=== PATIENT | female | born 1980 | race Caucasian/White ===

== ENCOUNTER 2018-07-17 11:07 | Emergency (ER) | payer OTHER ==
[2018-07-17 11:22] VITALS: BP 116/65; PULSE 81; TEMP 97.9; BMI 26.5
--- NOTE | 2018-07-17 12:02 | PDOC ---
History of Present Illness - General Chief Complaint: Headache Stated Complaint: HEADACHE Time Seen by Provider: 07/17/18 11:47 History Source: Patient Exam Limitations: No Limitations - History of Present Illness Initial Comments: 07/17/18 11:57 HISTORY OF PRESENT ILLNESS: This is a 38-year-old woman past medical history of hyperlipidemia who presents emergency departments with 1 month of occipital headache radiating across the left side of her head to her left orbit. She reports having intermittent tearing and photophobia. Patient states she's been taking Tylenol and Motrin with minimal relief of symptoms. She is unable to identify any alleviating or aggravating factors. She reports that she does not usually get headaches. No recent travel or sick contacts. PAST MEDICAL HISTORY: HLD SURGICAL HISTORY: Denies ALLERGIES: No known drug allergies REVIEW OF SYSTEMS General/Constitutional: Denies fever or chills. Denies weakness, weight change. HEENT: Denies change in vision. Denies ear pain or discharge. Denies sore throat. Cardiovascular: Denies chest pain or shortness of breath. Respiratory: Denies cough, wheezing, or hemoptysis. Gastrointestinal: Denies nausea, vomiting, diarrhea or constipation. Denies rectal bleeding. Genitourinary: Denies dysuria, frequency, or change in urination. Musculoskeletal: Denies joint or muscle swelling or pain. Denies neck or back pain. Skin and breasts: Denies rash or easy bruising. Neurologic: +headache. Denies vertigo, loss of consciousness, or loss of sensation. Psychiatric: Denies depression or anxiety. Endocrine: Denies increased thirst. Denies abnormal weight change. Hematologic/Lymphatic: Denies anemia, easy bleeding, or history of blood clots. Allergic/Immunologic: Denies hives or skin allergy. Denies latex allergy. PHYSICAL EXAM General Appearance: Well-appearing, appropriately dressed. No apparent distress , no intoxication. HEENT: EOMI, PERRLA, normal ENT inspection, normal voice, TMs normal, pharynx normal. No conjunctival pallor. No photophobia, scleral icterus. Neck: Supple. Trachea midline. No tenderness, rigidity, carotid bruit, stridor , lymphadenopathy, or thyromegaly. Respiratory/Chest: Lungs CTAB. No shortness of breath, chest tenderness, respiratory distress, accessory muscle use. No crackles, rales, rhonchi, stridor , wheezing, dullness Cardiovascular: RRR. S1, S2. No JVD, murmur, bradycardia, tachycardia. Vascular Pulses: Dorsalis-Pedis (R): 2+, Dorsalis-Pedis (L): 2+ Gastrointestinal/Abdominal: Normal bowel sounds. Abdomen soft, non-distended. No tenderness or rebound tenderness. No organomegaly, pulsatile mass, guarding, hernia, hepatomegaly, splenomegaly. Lymphatic: No adenopathy, tenderness. Musculoskeletal/Extremities: Normal inspection. FROM of all extremities, normal capillary refill. Pelvis Stable. No CVA tenderness. No tenderness to extremities, pedal edema, swelling, erythema or deformity. Integumentary: Appropriate color, dry, warm. 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 Fully oriented, alert. Appropriate mood/affect. Motor strength 5/5. No appreciable EOM palsy, facial droop or sensory deficit. Past History - Past Medical History Allergies/Adverse Reactions: Allergies Allergy/AdvReac Type Severity Reaction Status Date / Time No Known Allergies Allergy Verified 07/17/18 11:20 Home Medications: Ambulatory Orders NK [No Known Home Medication] 07/17/18 - Suicide/Smoking/Psychosocial Hx Smoking History: Never smoked Hx Alcohol Use: No Drug/Substance Use Hx: No Substance Use Type: None *Physical Exam - Vital Signs Last Vital Signs Temp Pulse Resp BP Pulse Ox 97.9 F 81 16 116/65 100 07/17/18 11:21 07/17/18 11:21 07/17/18 11:21 07/17/18 11:21 07/17/18 11:21 Medical Decision Making - Medical Decision Making 07/17/18 12:02 A/P: 38-year-old woman with headache for one month Neurologic exam is within normal limits Urine testing CAT scan Toradol Reassess 07/17/18 13:10 CT as read by Dr. Odom: No evidence of acute internal hemorrhage, edema, midline shift, mass effect or skull fracture. No CT evidence of acute territorial infarction. Patient states relief of pain after receiving Toradol. Given no evidence Talia pathology and relief after receiving Toradol with discharge the patient home to follow-up with her primary doctor. I discussed the physical exam findings, ancillary test results and final diagnoses with the patient. I answered all of the patient's questions. The patient was satisfied with the care received and felt comfortable with the discharge plan and treatment plan. The patient will call their primary care physician within 24 hours to arrange follow-up and will return to the Emergency Department with any new, persistent or worsening symptoms. *DC/Admit/Observation/Transfer Diagnosis at time of Disposition: Headache Qualifiers: Headache type: unspecified Headache chronicity pattern: unspecified pattern Intractability: not intractable Qualified Code(s): R51 - Headache - Discharge Dispostion Disposition: HOME Condition at time of disposition: Stable Decision to Admit order: No - Referrals - Patient Instructions Additional Instructions: Take Tylenol or Motrin as needed for headaches. Keep a diary of all food to eat and activities performed prior to headaches starting. Make an appointment with her primary doctor for reevaluation within the next week. Return to emergency department for worsening headache, blurry vision, dizziness , nausea, vomiting or any other concerns. Thank you very much for for choosing us to provide emergent health care needs. [place] Tylenol o Motrin segn sea necesario para los deja de margie. Mantenga un diario de todos los alimentos para comer y las actividades realizadas antes de comenzar con los deja de margie. Js miranda julisa con flores mdico de cabecera para flores reevaluacin dentro de la prxima semana. Regrese al departamento de emergencias para empeorar el dolor de margie, visin borrosa, mareos, nuseas, vmitos o cualquier otra inquietud. Muchas jessie por elegirnos para proporcionar necesidades de atencin mdica de emergencia. - Post Discharge Activity Forms/Work/School Notes: Back to Work
[2018-07-17] MEDS ORDERED: KETOROLAC TROMETHAMINE 30 MG/1 ML VIAL IM ONE (12:31)
[2018-07-17] MEDS ORDERED: KETOROLAC TROMETHAMINE 30 MG/1 ML VIAL ONE (12:36)
== END 2018-07-17 13:21 | disposition home or self-care (01) ==
LOC: JERFT 11:07
PROC: 3E0233Z Introduction of Anti-inflammatory into Muscle, Percutaneous Approach (ICD-10-PCS; principal; 2018-07-17)
DX: R51 Headache (principal)
CPT/HCPCS: 70450-TC; 84703; 96372; 99281-25

== ENCOUNTER 2021-03-06 10:46 | Emergency (ER) | payer OTHER ==
[2021-03-06 10:53] VITALS: BP 112/78; PULSE 83; TEMP 98.1; BMI 26.6
== END 2021-03-06 12:04 | disposition home or self-care (01) ==
LOC: JERFT 10:46
DX: M25.572 Pain in left ankle and joints of left foot (principal)
CPT/HCPCS: 73610-TC-LT-FY; 73630-TC-LT; 99283-25

== ENCOUNTER 2021-04-28 11:42 | Emergency (ER) | payer OTHER ==
[2021-04-28 11:55] VITALS: BP 139/82; PULSE 71; TEMP 98.3; BMI 32.2
== END 2021-04-28 12:49 | disposition home or self-care (01) ==
LOC: JERFT 11:42 → JER 11:42 → JERFT 12:49
DX: M25.572 Pain in left ankle and joints of left foot (principal)
CPT/HCPCS: 99282-25

== ENCOUNTER 2022-05-06 13:50 | Emergency (ER) | payer OTHER ==
[2022-05-06 15:21] VITALS: BP 119/79; PULSE 83; RESP 18; TEMP 98.2; BMI 27.4
[2022-05-06] MEDS ORDERED: ACETAMINOPHEN 1000 MG/100 ML BAG IVPB ONE (17:34)
[2022-05-06] MEDS ORDERED: ACETAMINOPHEN INJECTION 100 ML IVPB ONE (17:58)
[2022-05-06 18:23] LABS: HEMOGLOBIN 13.4 GM/dL (10.7-15.3); RBC 4.69 M/mm3 (3.60-5.2); WHITE BLOOD COUNT 9.2 K/mm3 (4.0-10.0)
[2022-05-06 18:24] LABS: BASO % 0.6 % (0-2.0); EOS % 1.7 % (0-4.5); HEMATOCRIT 39.2 % (32.4-45.2); MCH 28.5 pg (25.7-33.7); MCHC 34.2 g/dl (32.0-36.0); MEAN CELL VOLUME 83.4 fl (80-96); MONO % 6.9 % (3.8-10.2); NEUT % 64.8 % (42.8-82.8); PLATELET COUNT 249 10^3/uL (134-434); RDW 13.8 % (11.6-15.6)
[2022-05-06 18:28] LABS: EPI CELLS 20 /uL (0-25.1); HYALINE CASTS 0 /uL (0-3.1); URINE APPEARANCE CLEAR; URINE BACTERIA 228 /uL (0-1359); URINE BILIRUBIN NEGATIVE (NEGATIVE); URINE COLOR YELLOW; URINE GLUCOSE (UA) NEGATIVE (NEGATIVE); URINE KETONE TRACE (NEGATIVE); URINE LEUK ESTERASE 2+ (NEGATIVE); URINE NITRITE NEGATIVE (NEGATIVE); URINE PROTEIN NEGATIVE (NEGATIVE); URINE UROBILINOGEN 0.2 mg/dL (0.2-1.0); URINE WBC 52 /uL (0-25.8)
[2022-05-06 19:06] LABS: CALCIUM 8.9 mg/dL (8.5-10.1)
[2022-05-06 19:07] LABS: BLOOD UREA NITROGEN 10.9 mg/dL (7-18)
[2022-05-06 19:08] LABS: URINE RBC 39 /uL (0-23.9)
[2022-05-06 19:10] LABS: CREATININE 0.8 mg/dL (0.55-1.3)
[2022-05-06 19:11] LABS: BILIRUBIN,TOTAL 0.4 mg/dL (0.2-1); TOT PROT 7.8 g/dl (6.4-8.2)
[2022-05-06] MEDS ORDERED: SULFAMETHOXAZOLE/TRIMETHOPRIM 800MG/160MG D.S. TABLET PO ONE (19:24)
[2022-05-06] MEDS ORDERED: SULFAMETHOXAZOLE/TRIMETHOPRIM 800MG/160MG D.S. TABLET ONE (20:19)
== END 2022-05-06 23:41 | disposition home or self-care (01) ==
LOC: JER 13:50
PROC: 3E033NZ Introduction of Analgesics, Hypnotics, Sedatives into Peripheral Vein, Percutaneous Approach (ICD-10-PCS; principal; 2022-05-06)
DX: N83.209 Unspecified ovarian cyst, unspecified side (principal); K80.20 Calculus of gallbladder without cholecystitis without obstruction
CPT/HCPCS: 36415; 74177-TC; 76705-TC; 76856-TC; 80053; 81003; 83690; 84703; 85025; 87086; 87186; 87491; 87591; 99285-25; Q9967

== ENCOUNTER → 2022-12-18 | Day surgery (SDC) | payer OTHER | END | disposition home or self-care (01) | LOC: JRADUS-SUR 09:39 | PROVIDERS: ATTEND Family Medicine | PROC: 0H9T3ZX Drainage of Right Breast, Percutaneous Approach, Diagnostic (ICD-10-PCS; principal; 2022-12-18) | DX: D24.9 Benign neoplasm of unspecified breast (principal) | CPT/HCPCS: 19083; 87899; 88305-TC; A4648 ==

== ENCOUNTER 2023-12-04 12:17 | Emergency (ER) | payer OTHER ==
[2023-12-04 12:23] VITALS: BP 105/78; PULSE 81; RESP 19; TEMP 98.9; BMI 27.4
[2023-12-04] MEDS ORDERED: ACETAMINOPHEN INJECTION 100 ML IVPB ONE (14:01)
[2023-12-04] MEDS: ACETAMINOPHEN 1000 MG/100 ML BAG IVPB ONE (14:04)
[2023-12-04 14:20] LABS: BASO % 0.5 % (0-2.0); EOS % 1.1 % (0-4.5); HEMATOCRIT 39.6 % (32.4-45.2); HEMOGLOBIN 13.2 GM/dL (10.7-15.3); LYMPH % 30.9 % (8-40); MCH 28.1 pg (25.7-33.7); MCHC 33.2 g/dl (32.0-36.0); MEAN CELL VOLUME 84.7 fl (80-96); MONO % 7.4 % (3.8-10.2); NEUT % 60.1 % (42.8-82.8); PLATELET COUNT 245 10^3/uL (134-434); RBC 4.68 M/mm3 (3.60-5.2); WHITE BLOOD COUNT 7.7 K/mm3 (4.0-10.0)
[2023-12-04 14:29] LABS: EPI CELLS 16 /uL (0-25.1); HYALINE CASTS 1 /uL (0-3.1); PH,URINE 5.5 (5.0-8.0); URINE APPEARANCE CLEAR; URINE BACTERIA 290 /uL (0-1359); URINE BILIRUBIN NEGATIVE (NEGATIVE); URINE COLOR YELLOW; URINE GLUCOSE (UA) NEGATIVE (NEGATIVE); URINE KETONE TRACE (NEGATIVE); URINE LEUK ESTERASE 1+ (NEGATIVE); URINE NITRITE NEGATIVE (NEGATIVE); URINE PROTEIN NEGATIVE (NEGATIVE); URINE UROBILINOGEN 0.2 mg/dL (0.2-1.0); URINE WBC 30 /uL (0-25.8)
[2023-12-04 14:31] LABS: HCG,QUALITATIVE URINE Negative; URINE RBC 31.2 /uL (0-23.9)
[2023-12-04 14:43] LABS: POTASSIUM 4.3 mmol/L (3.5-5.1)
[2023-12-04 14:45] LABS: CALCIUM 9.5 mg/dL (8.5-10.1)
[2023-12-04 14:47] LABS: ALBUMIN 4.1 g/dl (3.4-5.0); BLOOD UREA NITROGEN 10.1 mg/dL (7-18)
[2023-12-04 14:49] LABS: CREATININE 0.7 mg/dL (0.55-1.3)
[2023-12-04 14:51] LABS: BILIRUBIN,TOTAL 1.2 mg/dL (0.2-1); TOT PROT 7.8 g/dl (6.4-8.2)
[2023-12-04 14:52] LABS: INR 1.09 (0.83-1.09); PROTHROMBIN TIME (PATIENT) 12.6 SEC (9.7-13.0)
[2023-12-04] MEDS ORDERED: SULFAMETHOXAZOLE/TRIMETHOPRIM 800MG/160MG D.S. TABLET ONE (16:43)
[2023-12-04] MEDS ORDERED: KETOROLAC TROMETHAMINE 30 MG/1 ML VIAL ONE (16:43)
[2023-12-04] MEDS: KETOROLAC TROMETHAMINE 30 MG/1 ML VIAL IVPUSH ONE (16:52)
[2023-12-04] MEDS: SULFAMETHOXAZOLE/TRIMETHOPRIM 800MG/160MG D.S. TABLET PO ONE (16:52)
== END 2023-12-04 16:54 | disposition home or self-care (01) ==
LOC: JER 12:17
PROC: 3E033NZ Introduction of Analgesics, Hypnotics, Sedatives into Peripheral Vein, Percutaneous Approach (ICD-10-PCS; principal; 2023-12-04)
PROC: 3E0333Z Introduction of Anti-inflammatory into Peripheral Vein, Percutaneous Approach (ICD-10-PCS; 2023-12-04)
DX: R10.30 Lower abdominal pain, unspecified (principal); N89.8 Other specified noninflammatory disorders of vagina; R11.0 Nausea; R42 Dizziness and giddiness; R51.9 Headache, unspecified; R20.0 Anesthesia of skin; R20.2 Paresthesia of skin; M54.2 Cervicalgia; R53.1 Weakness
CPT/HCPCS: 36415; 80053; 81003; 83690; 84703; 85025; 85610; 85730; 87086; 87102; 87210; 99284-25; J0131